=== PATIENT | male | born 1995 | race African-American/Black ===

== ENCOUNTER → 2017-08-25 | Outpatient (CLI) | payer OTHER ==
[~2017-08-25] MED LIST: AMLO5CAP2 PO; CHOL100010 PO
== END | disposition home or self-care (01) ==
LOC: C.LAB 03:12
DX: Z02.83 Encounter for blood-alcohol and blood-drug test (principal)

== ENCOUNTER 2020-08-29 18:47 | Observation (INO) ==
[2020-08-29] MEDS ORDERED: ONDANSETRON INJ 2 MG/ML 2 ML VIAL IV STA (20:06)
--- NOTE | 2020-08-29 20:06 | Emergency Department Note ---
Impression & Plan Malignant hypertension, Priapism ED Provider Note INFORMANT: Patient ED PROVIDER(S): Abhishek Desai MD CHIEF COMPLAINT: Illness PLAN: Disposition: Admitted Condition: Good Outpatient prescription management: none Referral: None MEDICAL DECISION MAKING: Patient presented to the emergency department complaining of illness. Initially was reported as severe abdominal pain and nausea. On my interview and history the patient noted having lower abdominal/groin pain and approximately 8 hours of a priapism episode. He has not had anything this significant before. He notes occasionally experiencing an erection for about 1 hour or so. Patient was noted to have significant hypertension. He seemed quite uncomfortable. He was treated with IV Dilaudid. He had a slight leukocytosis on CBC. Chemistry panel was unremarkable. I did consult with Dr. Rose of urology. The patient was evaluated in the ER. He treated his priapism and I did have to treat the patient's blood pressure. He was given labetalol and then hydralazine. He was given additional Dilaudid. The patient was doing better after the successful treatment of his priapism. He was being monitored as his blood pressure was still moderately elevated. The patient suddenly was unresponsive and appeared to have very rigid arms and legs. He bit his tongue. It looked like he experienced a seizure. I immediately attended to the patient. This occurred just minutes after my last reassessment of him. He had no complaints other than mild groin pain. He was placed on a nonrebreather. I did place a nasal airway. He maintained his oxygen saturations with this. He was minimally tachycardic and his blood pressure was around 150 systolic. He began to slowly respond to painful stimuli. He was still significantly altered. I did order a dose of IV Keppra. He had a CT scan ordered as well. Patient seemed to be in a postictal state for approximately 16 minutes and then started to come around rapidly. He was extremely confused. He was awake and yelling. He was trying to climb out of bed. Despite verbal de-escalation he was still very combative. Additional staff was summoned as well as security. The patient required full physical hold restraints as well as locked limb restraints as he was pulling out his IV, fighting with staff, and was not redirectable. He was given 2 mg of IM Ativan. He began to become more calm, directable and cooperative. An IV was reestablished. The patient denied any complaints other than some mild groin pain. No headache. He was following commands. He was continuously reassessed. He noted a history of seizures several times. He is not currently taking any medication for seizure. Patient was sent for CT imaging of his head. No acute intracranial finding was noted. He was observed. He did well without any additional seizure activity or focal findings. Given the malignant hypertension, his pain, and this seizure event further management in the hospital will be necessary. I did consult with Dr. Hernandez of internal medicine. She evaluated the patient in the ER for further management. Triage Nursing notes reviewed and agree them. Vital Signs: reviewed and remarkable for significant hypertension Differential diagnosis: Priapism, intra-abdominal process, but on hypertension, hypertensive emergency, infection, dehydration, metabolic abnormality, hypo/hyperglycemia, electrolyte disturbance, anemia, hypoxia, cardiac sources, intracerebral event, toxicologic, neurologic, as well as other pathologies. Diagnostics interpreted by me: ECLead ECG reveals sinus rhythm at [address] elevation or depression. Normal QRS and axis. Cardiac Monitoring: Cardiac monitoring ordered by me: The patient was placed on continuous cardiac monitoring and observed. It revealed a normal sinus rhythm at 90 beats per minute without ectopy or evidence of dysrhythmia. Imaging studies: Head CT: A noncontrast CT scan of the head was performed and was negative for tumor, fracture, intracranial hemorrhage, or other acute pathology. HPI: The patient is a 25 year old male who presents to the Emergency Room with complaints of priapism. This started 8 hrs ago and is persistent. The patient also notes the following associated symptoms, nausea, suprapubic abdominal pain. The patient has found no relieving factors. Current pain is rated as 10/10. Pt denies LOC, headache, fevers, chills, diaphoresis, visual changes, neck pain, chest pain, breathing difficulties, trauma, vomiting, back pain, melena, hematochezia, urinary symptoms, numbness, weakness, lymphadenopathy, rash, or other complaints. ROS: See above HPI for pertinent positives & negatives. A total of 10 systems reviewed and were otherwise negative. PAST MEDICAL HISTORY:See Below , HTN PAST SURGICAL HISTORY:See Below, FAMILY HISTORY:See Below SOCIAL HISTORY:See Below, +marijuana , +etoh HOME MEDICATIONS:See Below ALLERGIES:See Below VITALS:See Below PHYSICAL EXAMINATION: GENERAL: Awake, alert, uncomfortable-appearing, in no distress HENT: Normocephalic, atraumatic. Oropharynx unremarkable. EYES: Normal conjunctiva. Sclera non-icteric. NECK: Inspection normal. Non-tender. Supple. No nuchal rigidity. FROM. No masses. RESPIRATORY: Clear to auscultation. No wheezes. No rales. Normal respiratory effort. CARDIAC: Normal rate. Normal rhythm. No murmurs. No rubs. Extremities warm and well perfused. Pulses equal. No JVD. GI: Soft, non-distended. No tenderness to palpation. No rebound or guarding. No masses. RECTAL: Deferred. MUSCULOSKELETAL: Atraumatic. Chest examination reveals no tenderness. The back is symmetrical on inspection without obvious abnormality. There is no CVA tenderness to palpation. No joint edema. LOWER EXTREMITIES: Calves are equal size bilaterally and non-tender. No edema. No discoloration. NEURO: Normal sensorium. No sensory or motor deficits noted. SKIN: No rash or jaundice noted. CRITICAL CARE: I have personally spent greater than 30 minutes of critical care time in the direct management of this patient. This includes bedside care, interpretation of diagnostic studies, and testing, discussion with consultants, patient,and other required patient management activities. This 30 minutes is in excess of all separately billable procedures. Abhishek Desai MD Past Med/Surg History Medical History (Updated 08/29/20 @ 20:04 by Abhishek Desai MD) Alcohol dependency Hypertension Social History (Updated 07/28/19 @ 21:35 by Katie Pedraza MD) Smoking Status: Current every day smoker Hx Alcohol Use: Yes Hx Substance Use: No Current Living Situation: Alone and Other current occupational status: employed Feels Safe at Home: Yes Allergies Allergies Allergy/AdvReac Type Severity Reaction Status Date / Time No Known Allergies Allergy Unverified 08/29/20 20:12 Home Meds Home Medications Medication Instructions Recorded Confirmed No Known Home Medications 08/29/20 08/29/20 Results & Data (ED) Vital Signs Vital Signs - 24 hr 08/29/20 18:57 08/29/20 20:31 08/29/20 20:42 Temperature 36.6 C Temperature Source Temporal Artery Scan Pulse Rate 94 H 81 71 Pulse Rate from SpO2 Sensor Respiratory Rate 18 16 21 Respiratory Effort / Characteristics Non-Labored Respiratory Depth Normal Blood Pressure 222/134 H 198/127 H Blood Pressure Mean 163 150 Pulse Oximetry 98 Oxygen Delivery Method Room Air Sepsis Recent Fever Within 48 Hours No Sepsis New/Unexplained Change in Mental Status No Sepsis Action Taken by Nursing No Action Required 08/29/20 21:00 08/29/20 21:05 08/29/20 21:09 Temperature Temperature Source Pulse Rate 72 70 62 Pulse Rate from SpO2 Sensor Respiratory Rate 18 20 17 Respiratory Effort / Characteristics Respiratory Depth Blood Pressure 214/130 H 212/156 H Blood Pressure Mean 158 174 Pulse Oximetry Oxygen Delivery Method Sepsis Recent Fever Within 48 Hours Sepsis New/Unexplained Change in Mental Status Sepsis Action Taken by Nursing 08/29/20 21:10 08/29/20 21:11 08/29/20 21:13 Temperature Temperature Source Pulse Rate 53 L 67 58 L Pulse Rate from SpO2 Sensor Respiratory Rate 20 22 23 Respiratory Effort / Characteristics Respiratory Depth Blood Pressure 188/109 H 208/140 H Blood Pressure Mean 135 162 Pulse Oximetry Oxygen Delivery Method Sepsis Recent Fever Within 48 Hours Sepsis New/Unexplained Change in Mental Status Sepsis Action Taken by Nursing 08/29/20 21:15 08/29/20 21:18 08/29/20 21:20 Temperature Temperature Source Pulse Rate 60 62 71 Pulse Rate from SpO2 Sensor Respiratory Rate 25 H 15 23 Respiratory Effort / Characteristics Respiratory Depth Blood Pressure 183/111 H 177/112 H 198/114 H Blood Pressure Mean 135 133 142 Pulse Oximetry Oxygen Delivery Method Sepsis Recent Fever Within 48 Hours Sepsis New/Unexplained Change in Mental Status Sepsis Action Taken by Nursing 08/29/20 21:23 08/29/20 21:25 08/29/20 21:28 Temperature Temperature Source Pulse Rate 60 55 L 56 L Pulse Rate from SpO2 Sensor Respiratory Rate 17 20 20 Respiratory Effort / Characteristics Respiratory Depth Blood Pressure 198/120 H 219/119 H 201/128 H Blood Pressure Mean 146 152 152 Pulse Oximetry Oxygen Delivery Method Sepsis Recent Fever Within 48 Hours Sepsis New/Unexplained Change in Mental Status Sepsis Action Taken by Nursing 08/29/20 21:30 08/29/20 21:31 08/29/20 21:33 Temperature Temperature Source Pulse Rate 66 72 67 Pulse Rate from SpO2 Sensor Respiratory Rate 19 20 23 Respiratory Effort / Characteristics Respiratory Depth Blood Pressure 218/131 H 178/119 H Blood Pressure Mean 160 138 Pulse Oximetry Oxygen Delivery Method Sepsis Recent Fever Within 48 Hours Sepsis New/Unexplained Change in Mental Status Sepsis Action Taken by Nursing 08/29/20 21:34 08/29/20 21:35 08/29/20 21:38 Temperature Temperature Source Pulse Rate 68 81 78 Pulse Rate from SpO2 Sensor Respiratory Rate 17 19 17 Respiratory Effort / Characteristics Respiratory Depth Blood Pressure 179/143 H 166/108 H Blood Pressure Mean 155 127 Pulse Oximetry Oxygen Delivery Method Sepsis Recent Fever Within 48 Hours Sepsis New/Unexplained Change in Mental Status Sepsis Action Taken by Nursing 08/29/20 21:40 08/29/20 21:50 08/29/20 22:00 Temperature Temperature Source Pulse Rate 81 97 H Pulse Rate from SpO2 Sensor Respiratory Rate 21 22 Respiratory Effort / Characteristics Respiratory Depth Blood Pressure 192/105 H 173/123 H 144/93 H Blood Pressure Mean 134 139 110 Pulse Oximetry Oxygen Delivery Method Sepsis Recent Fever Within 48 Hours Sepsis New/Unexplained Change in Mental Status Sepsis Action Taken by Nursing 08/29/20 22:03 08/29/20 22:05 08/29/20 22:10 Temperature Temperature Source Pulse Rate 80 88 99 H Pulse Rate from SpO2 Sensor 79 90 99 H Respiratory Rate 24 19 28 H Respiratory Effort / Characteristics Respiratory Depth Blood Pressure 160/130 H 167/110 H Blood Pressure Mean 140 129 Pulse Oximetry 98 100 100 Oxygen Delivery Method Sepsis Recent Fever Within 48 Hours Sepsis New/Unexplained Change in Mental Status Sepsis Action Taken by Nursing 08/29/20 22:15 08/29/20 22:20 08/29/20 22:25 Temperature Temperature Source Pulse Rate 81 92 H 90 Pulse Rate from SpO2 Sensor 84 94 H Respiratory Rate 20 19 14 Respiratory Effort / Characteristics Respiratory Depth Blood Pressure 187/105 H 167/135 H 189/116 H Blood Pressure Mean 132 145 140 Pulse Oximetry 97 97 Oxygen Delivery Method Sepsis Recent Fever Within 48 Hours Sepsis New/Unexplained Change in Mental Status Sepsis Action Taken by Nursing 08/29/20 22:30 08/29/20 22:31 08/29/20 22:35 Temperature Temperature Source Pulse Rate 90 79 93 H Pulse Rate from SpO2 Sensor 91 H 79 Respiratory Rate 11 L 15 20 Respiratory Effort / Characteristics Respiratory Depth Blood Pressure 175/139 H 184/110 H Blood Pressure Mean 151 134 Pulse Oximetry 96 98 Oxygen Delivery Method Sepsis Recent Fever Within 48 Hours Sepsis New/Unexplained Change in Mental Status Sepsis Action Taken by Nursing 08/29/20 22:40 08/29/20 22:45 08/29/20 22:50 Temperature Temperature Source Pulse Rate 118 H 113 H 110 H Pulse Rate from SpO2 Sensor 117 H 113 H 110 H Respiratory Rate 27 H 19 16 Respiratory Effort / Characteristics Respiratory Depth Blood Pressure 201/141 H 210/111 H 161/93 H Blood Pressure Mean 161 144 115 Pulse Oximetry 99 98 98 Oxygen Delivery Method Sepsis Recent Fever Within 48 Hours Sepsis New/Unexplained Change in Mental Status Sepsis Action Taken by Nursing 08/29/20 22:53 08/29/20 22:55 08/29/20 23:00 Temperature Temperature Source Pulse Rate 108 H 105 H 104 H Pulse Rate from SpO2 Sensor 109 H 105 H 104 H Respiratory Rate 19 16 16 Respiratory Effort / Characteristics Respiratory Depth Blood Pressure 162/86 H 152/85 H 148/78 H Blood Pressure Mean 111 107 101 Pulse Oximetry 98 99 99 Oxygen Delivery Method Sepsis Recent Fever Within 48 Hours Sepsis New/Unexplained Change in Mental Status Sepsis Action Taken by Nursing 08/29/20 23:12 08/29/20 23:20 08/29/20 23:21 Temperature Temperature Source Pulse Rate 100 H 105 H 102 H Pulse Rate from SpO2 Sensor 105 H 101 H Respiratory Rate 16 15 Respiratory Effort / Characteristics Respiratory Depth Blood Pressure 198/95 H 167/96 H Blood Pressure Mean 129 119 Pulse Oximetry 99 97 Oxygen Delivery Method Sepsis Recent Fever Within 48 Hours Sepsis New/Unexplained Change in Mental Status Sepsis Action Taken by Nursing 08/29/20 23:30 08/29/20 23:53 Temperature Temperature Source Pulse Rate 101 H 87 Pulse Rate from SpO2 Sensor 104 H Respiratory Rate 17 15 Respiratory Effort / Characteristics Respiratory Depth Blood Pressure 150/85 H 154/92 H Blood Pressure Mean 106 112 Pulse Oximetry 96 Oxygen Delivery Method Sepsis Recent Fever Within 48 Hours Sepsis New/Unexplained Change in Mental Status Sepsis Action Taken by Nursing Laboratory Data Result diagrams: 08/29/20 20:16 08/29/20 20:16 Lab Results 08/29/20 08/29/20 08/29/20 Range/Units 20:16 20:16 21:00 WBC 11.42 H (4.8-10.8) K/uL RBC 4.55 L (4.7-6.1) M/uL Hgb 13.7 L (14.0-18.0) g/dL Hct 38.8 L (42-52) % MCV 85.3 (80-100) fL MCH 30.1 (25-34) pg MCHC 35.3 (32-36) g/dL RDW Std Deviation 45.6 (36.4-46.3) fL RDW Coeff of Leeanne 14.5 (11.5-14.5) % Plt Count 294 (130-400) K/uL MPV 9.4 (7.4-10.4) fL Immature Gran % (Auto) 0.3 % Neut % (Auto) 87.3 % Lymph % (Auto) 8.4 % Price % (Auto) 3.9 % Eos % (Auto) 0.1 % Baso % (Auto) 0.0 % Neut # (Auto) 9.98 H (1.4-6.5) K/uL Lymph # (Auto) 0.96 L (1.2-3.4) K/uL Price # (Auto) 0.44 (0.11-0.59) K/uL Eos # (Auto) 0.01 (0-0.5) K/uL Baso # (Auto) 0.00 (0-0.2) K/uL Immature Gran # (Auto) 0.03 H (0.00-0.02) K/uL Sodium 136 (136-145) mmol/L Potassium 3.5 (3.5-5.1) mmol/L Chloride 102 (98-107) mmol/L Carbon Dioxide 27 (21-32) mmol/L Anion Gap 8.0 (3-11) BUN 6 L (7-18) mg/dl Creatinine 0.78 (0.6-1.4) mg/dl Est Cr Clr Drug Dosing 125.5 ml/min Est GFR ( Amer) 145.4 Est GFR (Non-Af Amer) 125.5 BUN/Creatinine Ratio 8.0 L (10-20) Glucose 100 H (70-99) mg/dl POC Glucose (70-99) mg/dl Calcium 10.3 H (8.5-10.1) mg/dl Total Bilirubin 0.4 (0.2-1) mg/dl AST 16 (15-37) U/L ALT 18 (12-78) U/L Alkaline Phosphatase 107 (45-117) U/L Total Protein 7.7 (6.4-8.2) gm/dl Albumin 4.2 (3.4-5.0) gm/dl Globulin 3.5 (2.5-4.0) gm/dl Albumin/Globulin Ratio 1.2 (0.9-2) Lipase 84 (73-393) U/L Urine Color Yellow Urine Appearance Clear (Clear) Urine pH 8.0 H (4.5-7.5) Ur Specific [place] 1.006 (1.000-1.030) Urine Protein Negative (Negative) Urine Glucose (UA) Negative (Negative) Urine Ketones Negative (Negative) Urine Blood Negative (Negative) Urine Nitrite Negative (Negative) Urine Bilirubin Negative (Negative) Urine Urobilinogen Negative (Negative) Ur Leukocyte Esterase Negative (Negative) COVID-19 Eval Order SARS-CoV-2 (PCR) (Negative) Influenza Type A (PCR) (Neg) Influenza Type B (PCR) (Neg) RSV (RT-PCR) (Neg) 08/29/20 08/29/20 08/29/20 Range/Units 22:52 23:30 23:30 WBC (4.8-10.8) K/uL RBC (4.7-6.1) M/uL Hgb (14.0-18.0) g/dL Hct (42-52) % MCV (80-100) fL MCH (25-34) pg MCHC (32-36) g/dL RDW Std Deviation (36.4-46.3) fL RDW Coeff of Leeanne (11.5-14.5) % Plt Count (130-400) K/uL MPV (7.4-10.4) fL Immature Gran % (Auto) % Neut % (Auto) % Lymph % (Auto) % Price % (Auto) % Eos % (Auto) % Baso % (Auto) % Neut # (Auto) (1.4-6.5) K/uL Lymph # (Auto) (1.2-3.4) K/uL Price # (Auto) (0.11-0.59) K/uL Eos # (Auto) (0-0.5) K/uL Baso # (Auto) (0-0.2) K/uL Immature Gran # (Auto) (0.00-0.02) K/uL Sodium (136-145) mmol/L Potassium (3.5-5.1) mmol/L Chloride (98-107) mmol/L Carbon Dioxide (21-32) mmol/L Anion Gap (3-11) BUN (7-18) mg/dl Creatinine (0.6-1.4) mg/dl Est Cr Clr Drug Dosing ml/min Est GFR ( Amer) Est GFR (Non-Af Amer) BUN/Creatinine Ratio (10-20) Glucose (70-99) mg/dl POC Glucose 136 H (70-99) mg/dl Calcium (8.5-10.1) mg/dl Total Bilirubin (0.2-1) mg/dl AST (15-37) U/L ALT (12-78) U/L Alkaline Phosphatase (45-117) U/L Total Protein (6.4-8.2) gm/dl Albumin (3.4-5.0) gm/dl Globulin (2.5-4.0) gm/dl Albumin/Globulin Ratio (0.9-2) Lipase (73-393) U/L Urine Color Urine Appearance (Clear) Urine pH (4.5-7.5) Ur Specific [place] (1.000-1.030) Urine Protein (Negative) Urine Glucose (UA) (Negative) Urine Ketones (Negative) Urine Blood (Negative) Urine Nitrite (Negative) Urine Bilirubin (Negative) Urine Urobilinogen (Negative) Ur Leukocyte Esterase (Negative) COVID-19 Eval Order CovFluRsv at [facility] SARS-CoV-2 (PCR) NEGATIVE (Negative) Influenza Type A (PCR) Negative (Neg) Influenza Type B (PCR) Negative (Neg) RSV (RT-PCR) Negative (Neg) Administered Medications Hydromorphone HCl (Hydromorphone Inj 1 Mg/Ml Syringe) 1 mg IV Q15M PRN PRN Reason: Pain Stop: 09/12/20 20:05 Last Admin: 08/29/20 22:03 Dose: 1 mg Documented by: [id number] Admin: 08/29/20 21:28 Dose: 1 mg Documented by: [id number] Admin: 08/29/20 20:53 Dose: 1 mg Documented by: [id number] Phenylephrine HCl 4 mg/ (Syringe) 20 mls @ 0.033 mls/min ITC ONE ONE Stop: 08/30/20 07:06 Last Admin: 08/29/20 21:22 Dose: 0.033 mls/min Documented by: [id number] Discontinued Medications Hydralazine HCl (Hydralazine Hcl 20 Mg/Ml Vial) 10 mg IV NOW STA Stop: 08/29/20 21:22 Last Admin: 08/29/20 21:26 Dose: 10 mg Documented by: [id number] Sodium Chloride (Nss 1000ml) 1,000 mls @ 999 mls/hr IV .Q1H1M ONE Stop: 08/29/20 21:07 Last Infusion: 08/29/20 23:01 Dose: 0 mls/hr Documented by: [id number] Admin: 08/29/20 20:58 Dose: 999 mls/hr Documented by: [id number] Levetiracetam 1,000 mg/ Sodium (Chloride) 110 mls @ 440 mls/hr IV NOW STA Stop: 08/29/20 23:05 Last Infusion: 08/29/20 23:58 Dose: 0 mls/hr Documented by: [id number] Admin: 08/29/20 23:21 Dose: 440 mls/hr Documented by: [id number] Labetalol HCl (Labetalol Hcl Iv 5 Mg/Ml 20ml) 10 mg IV NOW STA Stop: 08/29/20 21:00 Last Admin: 08/29/20 21:03 Dose: 10 mg Documented by: [id number] Cosigned by: [id number] Lidocaine HCl (Lidocaine Hcl 1% 20 Ml Vial) Confirm Administered Dose 20 ml .ROUTE .STK-MED ONE Stop: 08/29/20 21:03 Last Admin: 08/29/20 21:22 Dose: 20 ml Documented by: [id number] Lorazepam (Lorazepam 2 Mg/Ml Vial (Im Use)) Confirm Administered Dose 2 mg .ROUTE .STK-MED ONE Stop: 08/29/20 23:05 Last Admin: 08/29/20 23:22 Dose: 2 mg Documented by: [id number] Ondansetron HCl (Ondansetron Inj 2 Mg/Ml 2 Ml Vial) 4 mg IV NOW STA Stop: 08/29/20 20:07 Last Admin: 08/29/20 20:53 Dose: 4 mg Documented by: [id number] Discharge Plan Visit Data Chief Complaint: Illness Stated Complaint: LOSS OF BLOOD FLOW, DIZZY ED Provider: Abhishek Desai Discharge Problem: Malignant hypertension, Priapism Forms Stand Alone Forms: My [facility] Prescriptions Prescriptions: No Action No Known Home Medications RF: 0
[2020-08-29] MEDS ORDERED: SODIUM CHLORIDE 0.9% 1000ML 1,000 ML IV ONE (20:07)
[2020-08-29 20:27] LABS: Eosinophils # (auto) 0.01 K/uL (0-0.5); Eosinophils % (auto) 0.1 %; Hematocrit (blood only) 38.8 % (42-52); Hemoglobin 13.7 g/dL (14.0-18.0); Immature Granulocytes # (auto) 0.03 K/uL (0.00-0.02); Immature Granulocytes % (auto) 0.3 %; Lymphocytes # (auto) 0.96 K/uL (1.2-3.4); Lymphocytes % (auto) 8.4 %; Mean Corpuscular Hemoglobin 30.1 pg (25-34); Mean Corpuscular Hgb Conc 35.3 g/dL (32-36); Mean Corpuscular Volume 85.3 fL (80-100); Mean Platelet Volume 9.4 fL (7.4-10.4); Monocytes # (auto) 0.44 K/uL (0.11-0.59); Monocytes % (auto) 3.9 %; Neutrophils # (auto) 9.98 K/uL (1.4-6.5); Neutrophils % (auto) 87.3 %; Platelet Count 294 K/uL (130-400); RDW Coefficient of Variation 14.5 % (11.5-14.5); RDW Standard Deviation 45.6 fL (36.4-46.3); Red Blood Count 4.55 M/uL (4.7-6.1); White Blood Count 11.42 K/uL (4.8-10.8)
[2020-08-29 20:46] LABS: Albumin Level 4.2 gm/dl (3.4-5.0); Calcium 10.3 mg/dl (8.5-10.1); Creatinine Clr Calc Pharmacy 125.5 ml/min; Est GFR (African American) 145.4; Est GFR (Non-African American) 125.5; Potassium 3.5 mmol/L (3.5-5.1)
[2020-08-29 20:49] LABS: Albumin Globulin Ratio 1.2 (0.9-2); Bilirubin,Total 0.4 mg/dl (0.2-1); Globulin 3.5 gm/dl (2.5-4.0); Total Protein 7.7 gm/dl (6.4-8.2)
[2020-08-29] MEDS: HYDROmorphone INJ 1 MG/ML SYRINGE IV PRN ×3 (20:53→22:03)
[2020-08-29] MEDS ORDERED: LABETALOL HCL IV 5 MG/ML 20ML IV STA (20:59)
[2020-08-29] MEDS ORDERED: PHENYLEPHRINE HCL ITC ONE ×2 (21:00)
[2020-08-29] MEDS ORDERED: LIDOCAINE HCL 1% 20 ML VIAL ONE (21:02)
[2020-08-29] MEDS ORDERED: hydrALAZINE HCL 20 MG/ML VIAL IV STA (21:21)
[2020-08-29 22:31] LABS: Appearance Urine Clear (Clear); Bilirubin Urine Negative (Negative); Blood Urine Negative (Negative); Color Urine Yellow; Glucose Urine UA Negative (Negative); Ketones Urine Negative (Negative); Leukocyte Esterase Urine Negative (Negative); Nitrite Urine Negative (Negative); Protein Urine Negative (Negative); Specific Gravity Urine 1.006 (1.000-1.030); Urobilinogen Urine Negative (Negative)
[2020-08-29] MEDS ORDERED: levETIRAcetam 1,000 MG in 0.9 % SODIUM CHLORIDE 100 ML IV STA (22:51)
[2020-08-29] MEDS ORDERED: LORazepam 2 MG/ML VIAL (IM USE) ONE (23:04)
[2020-08-30 00:35] LABS: Influenza A virus by PCR Negative (Neg); Influenza B virus by PCR Negative (Neg); RSV by PCR Negative (Neg); SARS CoV2 RNA(COVID-19) InHosp NEGATIVE (Negative)
--- NOTE | 2020-08-30 01:13 | History & Physical Report ---
Date of Service August 30, 2020 Assessment & Plan (1) Priapism: 25yo male presenting with 8 hours of priapism. Patient states he has had erections in the past lasting over one hour, but no history of prolonged erection/priapism in the past. He denies trauma. Treated by Urology with Phenylephrine -Monitor Present on Admission?: Yes (2) Hypertension: Elevated blood pressure, >200mmHg in ER. Improved now with administration of Labetalol and Hydralazine IV. Patient states he has had hypertension since childhood. He was being followed by PCP in the past and was on medications for this previously, however, currently does not take any medications. Collateral information obtained from patient's mother who stated he was first diagnosed with high blood pressure at age 13, possibly after a streptococcal infection/strep throat. He was on medication in the past but does not routinely see a physician. -Labetalol and Hydralazine IV PRN -Chlorthalidone 25mg po daily to start tomorrow -Consider secondary hypertension workup -Patient will need to establish care with a PCP and followup Present on Admission?: Yes (3) Seizure: Mother states that patient has had several seizures over the past few months. She is uncertain why patient is having seizure. He does have a history of substance abuse and EtOH use but denies using anything today. Mother also states that patient has become combative in the past following seizures. He was given Keppra x 1 gm in ER Electrolytes largely normal -Maintain seizure precautions -Check EEG -Neurology consultation appreciated -Checking UTox and EtOH level -Ativan PRN Present on Admission?: Yes (4) Alcohol dependency: Uncertain how much patient drinks or when his last drink was. -Administer banana bag -Thiamine and folic acid PO daily -Maintain seizure precautions -Ativan PRN -Monitor for evidence of EtOH withdrawal F/E/N - IVF given in ER, monitor electrolytes and replete as needed, Check Ical, regular diet when MS improves Ppx - Low risk for DVT Code- Full Dispo - Admit to PCU POC - Yelitza Gloria - Mother - [phone] History of Present Illness Chief Complaint: priapism Primary Care Provider: NO PCP Rigo Vargas is a 25yo male with history of HTN presenting to [facility] ER with priapism - initially complaining of lower abdominal pain and groin pain. Found to have priapism - appx 8 hour duration. He was evaluated by Urology whilst in the ER and was treated for his priapism with phenylephrine and pain control. Patient then proceeded to have a witnessed tonic-clonic seizure which was treated with Ativan and Keppra. patient was combative upon awakening and was briefly placed in restraints. Blood pressure was managed with several IV agents. Patient somnolent during my encounter. Wakes to verbal and tactile stimuli and answers some questions before falling back asleep. No additional complaints ER Course: Ativan 2mg, Keppra 1gm, Dilaudid 1mg, Hydralazine 10mg, Dilaudid 1mg x 3, Lidocaine, Phenylephrine, Labetalol, NSS, Zofran Allergies Allergy/AdvReac Type Severity Reaction Status Date / Time No Known Allergies Allergy Unverified 08/29/20 20:12 Home Medications Medication Instructions Recorded Confirmed Type No Known Home Medications 08/29/20 08/29/20 History Past Med/Surg History Medical History (Updated 08/30/20 @ 01:39 by Radha Hernandez DO) Alcohol dependency Hypertension Surgical History (Updated 08/30/20 @ 01:34 by Radha Hernandez DO) No significant past surgical history Family History (Updated 08/30/20 @ 01:35 by Radha Hernandez DO) Other No significant family history Social History (Updated 07/28/19 @ 21:35 by Katie Pedraza MD) Smoking Status: Current every day smoker Hx Alcohol Use: Yes Hx Substance Use: No Current Living Situation: Alone and Other current occupational status: employed Feels Safe at Home: Yes Review of Systems Review of Systems: All systems reviewed & are unremarkable except as noted in HPI & below Physical Exam Physical Exam: General: patient somnolent, arousable, answers some questions and follows commands Skin: warm, dry, intact, no rashes or lesions HEENT: NC/AT, PERRL, EOMI, anicteric sclera, conjunctiva without injection, external ear normal to inspection and nontender, nares patent, moist mucus membranes, dentition intact, no oropharyngeal lesions, neck supple, trachea midline, no LAD, no thyromegaly, no JVD Heart: +S1/S2, regular, no m/r/g Lungs: equal air entry bilaterally, no rales/rhonchi/wheezes Abd: +BS, soft, NT/ND, no masses/organomegaly/ascites Ext: warm, 2+ pulses in UE/LE bilaterally, no clubbing/cyanosis or edema Neuro: nonfocal, patient AA&O x 4, speech intact, no facial droop, moving all extremities on command with equal strength 5/5 Results & Data Results & Data ([facility]) Vital Signs (Past 12 Hours) Vital Signs Temp Pulse Resp BP Pulse Ox 08/29/20 23:53 87 15 154/92 H 08/29/20 23:30 101 H 17 150/85 H 96 08/29/20 23:21 102 H 15 167/96 H 97 08/29/20 23:20 105 H 16 198/95 H 99 08/29/20 23:12 100 H 08/29/20 23:00 104 H 16 148/78 H 99 08/29/20 22:55 105 H 16 152/85 H 99 08/29/20 22:53 108 H 19 162/86 H 98 08/29/20 22:50 110 H 16 161/93 H 98 08/29/20 22:45 113 H 19 210/111 H 98 08/29/20 22:40 118 H 27 H 201/141 H 99 08/29/20 22:35 93 H 20 184/110 H 08/29/20 22:31 79 15 98 08/29/20 22:30 90 11 L 175/139 H 96 08/29/20 22:25 90 14 189/116 H 08/29/20 22:20 92 H 19 167/135 H 97 08/29/20 22:15 81 20 187/105 H 97 08/29/20 22:10 99 H 28 H 167/110 H 100 08/29/20 22:05 88 19 160/130 H 100 08/29/20 22:03 80 24 98 08/29/20 22:00 144/93 H 08/29/20 21:50 97 H 22 173/123 H 08/29/20 21:40 81 21 192/105 H 08/29/20 21:38 78 17 166/108 H 08/29/20 21:35 81 19 179/143 H 08/29/20 21:34 68 17 08/29/20 21:33 67 23 178/119 H 08/29/20 21:31 72 20 08/29/20 21:30 66 19 218/131 H 08/29/20 21:28 56 L 20 201/128 H 08/29/20 21:25 55 L 20 219/119 H 08/29/20 21:23 60 17 198/120 H 08/29/20 21:20 71 23 198/114 H 08/29/20 21:18 62 15 177/112 H 08/29/20 21:15 60 25 H 183/111 H 08/29/20 21:13 58 L 23 208/140 H 08/29/20 21:11 67 22 08/29/20 21:10 53 L 20 188/109 H 08/29/20 21:09 62 17 212/156 H 08/29/20 21:05 70 20 214/130 H 08/29/20 21:00 72 18 08/29/20 20:42 71 21 08/29/20 20:31 81 16 198/127 H 08/29/20 18:57 36.6 C 94 H 18 222/134 H 98 Laboratory Results Lab Results 08/29/20 08/29/20 08/29/20 Range/Units 20:16 20:16 21:00 WBC 11.42 H (4.8-10.8) K/uL RBC 4.55 L (4.7-6.1) M/uL Hgb 13.7 L (14.0-18.0) g/dL Hct 38.8 L (42-52) % MCV 85.3 (80-100) fL MCH 30.1 (25-34) pg MCHC 35.3 (32-36) g/dL RDW Std Deviation 45.6 (36.4-46.3) fL RDW Coeff of Leeanne 14.5 (11.5-14.5) % Plt Count 294 (130-400) K/uL MPV 9.4 (7.4-10.4) fL Immature Gran % (Auto) 0.3 % Neut % (Auto) 87.3 % Lymph % (Auto) 8.4 % [place] % (Auto) 3.9 % Eos % (Auto) 0.1 % Baso % (Auto) 0.0 % Neut # (Auto) 9.98 H (1.4-6.5) K/uL Lymph # (Auto) 0.96 L (1.2-3.4) K/uL [place] # (Auto) 0.44 (0.11-0.59) K/uL Eos # (Auto) 0.01 (0-0.5) K/uL Baso # (Auto) 0.00 (0-0.2) K/uL Immature Gran # (Auto) 0.03 H (0.00-0.02) K/uL Sodium 136 (136-145) mmol/L Potassium 3.5 (3.5-5.1) mmol/L Chloride 102 (98-107) mmol/L Carbon Dioxide 27 (21-32) mmol/L Anion Gap 8.0 (3-11) BUN 6 L (7-18) mg/dl Creatinine 0.78 (0.6-1.4) mg/dl Est Cr Clr Drug Dosing 125.5 ml/min Est GFR ( Amer) 145.4 Est GFR (Non-Af Amer) 125.5 BUN/Creatinine Ratio 8.0 L (10-20) Glucose 100 H (70-99) mg/dl POC Glucose (70-99) mg/dl Calcium 10.3 H (8.5-10.1) mg/dl Total Bilirubin 0.4 (0.2-1) mg/dl AST 16 (15-37) U/L ALT 18 (12-78) U/L Alkaline Phosphatase 107 (45-117) U/L Total Protein 7.7 (6.4-8.2) gm/dl Albumin 4.2 (3.4-5.0) gm/dl Globulin 3.5 (2.5-4.0) gm/dl Albumin/Globulin Ratio 1.2 (0.9-2) Lipase 84 (73-393) U/L Urine Color Yellow Urine Appearance Clear (Clear) Urine pH 8.0 H (4.5-7.5) Ur Specific [place] 1.006 (1.000-1.030) Urine Protein Negative (Negative) Urine Glucose (UA) Negative (Negative) Urine Ketones Negative (Negative) Urine Blood Negative (Negative) Urine Nitrite Negative (Negative) Urine Bilirubin Negative (Negative) Urine Urobilinogen Negative (Negative) Ur Leukocyte Esterase Negative (Negative) COVID-19 Eval Order SARS-CoV-2 (PCR) (Negative) Influenza Type A (PCR) (Neg) Influenza Type B (PCR) (Neg) RSV (RT-PCR) (Neg) 08/29/20 08/29/20 08/29/20 Range/Units 22:52 23:30 23:30 WBC (4.8-10.8) K/uL RBC (4.7-6.1) M/uL Hgb (14.0-18.0) g/dL Hct (42-52) % MCV (80-100) fL MCH (25-34) pg MCHC (32-36) g/dL RDW Std Deviation (36.4-46.3) fL RDW Coeff of Leeanne (11.5-14.5) % Plt Count (130-400) K/uL MPV (7.4-10.4) fL Immature Gran % (Auto) % Neut % (Auto) % Lymph % (Auto) % [place] % (Auto) % Eos % (Auto) % Baso % (Auto) % Neut # (Auto) (1.4-6.5) K/uL Lymph # (Auto) (1.2-3.4) K/uL [place] # (Auto) (0.11-0.59) K/uL Eos # (Auto) (0-0.5) K/uL Baso # (Auto) (0-0.2) K/uL Immature Gran # (Auto) (0.00-0.02) K/uL Sodium (136-145) mmol/L Potassium (3.5-5.1) mmol/L Chloride (98-107) mmol/L Carbon Dioxide (21-32) mmol/L Anion Gap (3-11) BUN (7-18) mg/dl Creatinine (0.6-1.4) mg/dl Est Cr Clr Drug Dosing ml/min Est GFR ( Amer) Est GFR (Non-Af Amer) BUN/Creatinine Ratio (10-20) Glucose (70-99) mg/dl POC Glucose 136 H (70-99) mg/dl Calcium (8.5-10.1) mg/dl Total Bilirubin (0.2-1) mg/dl AST (15-37) U/L ALT (12-78) U/L Alkaline Phosphatase (45-117) U/L Total Protein (6.4-8.2) gm/dl Albumin (3.4-5.0) gm/dl Globulin (2.5-4.0) gm/dl Albumin/Globulin Ratio (0.9-2) Lipase (73-393) U/L Urine Color Urine Appearance (Clear) Urine pH (4.5-7.5) Ur Specific [place] (1.000-1.030) Urine Protein (Negative) Urine Glucose (UA) (Negative) Urine Ketones (Negative) Urine Blood (Negative) Urine Nitrite (Negative) Urine Bilirubin (Negative) Urine Urobilinogen (Negative) Ur Leukocyte Esterase (Negative) COVID-19 Eval Order CovFluRsv at [facility] SARS-CoV-2 (PCR) NEGATIVE (Negative) Influenza Type A (PCR) Negative (Neg) Influenza Type B (PCR) Negative (Neg) RSV (RT-PCR) Negative (Neg) Diagnostic Findings CT head - n oacute intracranial findings ECG Additional Comments: EKG with SR at 73, normal axis, PACs PG Care Time/CCT Total # of Minutes Spent Total Time Spent with Patient: Total time spent is greater than 50% in coordination of care (as documented) at patient's floor/unit and/or counseling patient: Coding Level of Care Code 02022 Initial Inpt Care Lvl 3 Diagnoses Priapism N48.30 Hypertension I10 Hypertension type: essential hypertension Seizure R56.9 Alcohol dependency F10.288 Substance use status: other alcohol-induced disorder (1) Hypertension Hypertension type: essential hypertension Qualified Code(s): I10 - Essential (primary) hypertension (2) Alcohol dependency Substance use status: other alcohol-induced disorder Qualified Code(s): F10.288 - Alcohol dependence with other alcohol-induced disorder
[2020-08-30] MEDS ORDERED: LABETALOL HCL IV 5 MG/ML 20ML IV PRN (02:27)
[2020-08-30] MEDS ORDERED: LORazepam 1 MG/2 ML VIAL IV PRN (02:27)
[2020-08-30] MEDS ORDERED: hydrALAZINE HCL 20 MG/ML VIAL IV PRN (02:27)
[2020-08-30 03:22] LABS: Magnesium 2.5 mg/dl (1.8-2.4); Phosphorus 3.3 mg/dl (2.5-4.9)
[2020-08-30 03:23] LABS: Prothrombin Time 10.1 Seconds (9.0-12.0)
[2020-08-30] MEDS ORDERED: MULTI-VITAMIN INFUSION 10 ML, THIAMINE HCL 100 MG, FOLIC ACID 1 MG in SODIUM CHLORIDE 0... IV ONE (03:30)
[2020-08-30] MEDS ORDERED: HYDROmorphone INJ 0.5 MG/0.5 ML SYR IV STA ×3 (03:37→19:45)
[2020-08-30] MEDS: HYDROmorphone INJ 0.5 MG/0.5 ML SYR ONE ×2 (03:54→04:01)
[2020-08-30 03:55] LABS: Reticulocytes # 0.03 10^6/uL (0.02-0.10)
[2020-08-30 03:56] LABS: Reticulocyte % 0.6 % (0.5-2.0)
[2020-08-30 04:09] LABS: Amphetamines+Metham, Urine Neg (Neg); Barbiturates, Urine Neg (Neg); Benzodiazepine, Urine Neg (Neg); Cocaine, Urine Neg (Neg); MDMA (Ecstacy), Urine Neg (Neg); Methadone, Urine Neg (Neg); Opiate, Urine Pos (Neg); Phencyclidine, Urine Neg (Neg)
--- NOTE | 2020-08-30 06:56 | CT Scan Report ---
CT OF THE HEAD WITHOUT CONTRAST CLINICAL HISTORY: Seizure. COMPARISON STUDY: No previous studies for comparison. CT DOSE: 537.48 mGy.cm TECHNIQUE: Helical axial images of the head were obtained without IV contrast. Automated exposure con trol was utilized for the study. A dose lowering technique was utilized adhering to the principles o f ALARA. FINDINGS: No acute intracranial hemorrhage, midline shift or mass effect is present. The ventricular system is unremarkable. The basal cisterns are patent. No extra-axial collections are present. There are no findings to suggest acute dural sinus thrombosis or acute territorial infarct. No significant calvarial abnormalities are present. Visualized portions of the sinuses and mastoid air cells are jemima ar. IMPRESSION: No acute intracranial findings. ACT 112: Negative or not required by law. Electronically signed by: Alberto Brown M.D. 08/30/2020 6:55 AM
--- NOTE | 2020-08-30 07:31 | Consultation Report ---
DATE OF CONSULTATION: 08/29/2020 ER CONSULT REASON FOR THE CONSULT: Priapism. HISTORY OF PRESENTATION: The patient is a 25-year-old male with no previous history of priapism who this morning at 11:00, he woke up with an erection, tried to get back to sleep for an hour, but it never went away. It did not cause him any discomfort. He took a warm shower hoping that this would help, but it did not and around 3-4 o'clock, it began to be painful. Finally, he came to the Emergency Room. The patient denies any trauma to his penis. He did fall about a month ago and injured his ankle, but not his torso or his pelvis area. He does not have a history of any sickle cell in his family. He has never been told he had sickle cell. He does have a history of hypertension. He also has a history of drug and alcohol use and has had several overdoses with drug and alcohol use in the past couple years and as recently as several months ago. The patient also smokes. He was diagnosed a year ago with pancreatitis and is to follow up in [place] for this. The patient denies taking any medications. Denies having any allergies and again he previously took blood pressure medicine, but is not currently on it. PHYSICAL EXAMINATION: GENERAL: The patient is a thin, well-developed black male in moderate distress. HEENT: Unremarkable. Blood pressure was 200/140 and it was very high and the Emergency Room physician has managed this with hydralazine and other antihypertensives during the course of his stay as well as with Dilaudid. EXTREMITIES: Unremarkable. SKIN: Did have multiple tattoos. ABDOMEN: Benign. GENITALIA: He did have a clear erection with normal circumcised male phallus. Testes were normal without mass. Discussed the options with the patient, told him that I was going to withdraw some blood from the penis after anesthetizing him with 1% lidocaine without epinephrine and then irrigate it with some normal saline and I did this with some moderate reduction in the rigidity, but still remained rigid. Ordered some phenylephrine from the pharmacy per protocol, was 200 mcg/mL and injected 1 mL 3 times over waiting 10 minutes between each injection while irrigating in between. Finally, the penis totally detumesced. The patient still had mild discomfort but mainly from where the ligaments joined him to his torso. Otherwise, his pain was well controlled. I told him not to do any stimulation of his penis at all for several days. I told him that if he got this again he should come back after 3-4 hours rather than waiting as long as he did. Hopefully, the patient will not have this again. I also instructed him to follow up with the family doctor regarding his blood pressure and advised him against using alcohol given his pancreatitis and smoking given his high blood pressure. The patient will be managed by the Emergency Room physician for several hours monitoring his blood pressure and to make sure that the erection did not return prior to his release.
--- NOTE | 2020-08-30 08:38 | Electroencephalogram ---
EEG Procedure Note Date of Service August 30, 2020 Start / End Times Start Time: 5:17 AM End Time: 5:37 AM Referring Physician Radha Hernandez History Seizure Home Medication List Medication Instructions Recorded Confirmed Type No Known Home Medications 08/29/20 08/29/20 History Inpatient Medication List Discontinued Medications Hydralazine HCl (Hydralazine Hcl 20 Mg/Ml Vial) 10 mg IV NOW STA Stop: 08/29/20 21:22 Last Admin: 08/29/20 21:26 Dose: 10 mg Documented by: [id number] Hydromorphone HCl (Hydromorphone Inj 1 Mg/Ml Syringe) 1 mg IV Q15M PRN PRN Reason: Pain Stop: 09/12/20 20:05 Last Admin: 08/29/20 22:03 Dose: 1 mg Documented by: [id number] Admin: 08/29/20 21:28 Dose: 1 mg Documented by: [id number] Admin: 08/29/20 20:53 Dose: 1 mg Documented by: [id number] Hydromorphone HCl (Hydromorphone Inj 0.5 Mg/0.5 Ml Syr) 0.5 mg IV NOW STA Stop: 08/30/20 03:38 Last Admin: 08/30/20 03:47 Dose: 0.5 mg Documented by: [id number] Hydromorphone HCl (Hydromorphone Inj 0.5 Mg/0.5 Ml Syr) Confirm Administered Dose 0.5 mg .ROUTE .STK-MED ONE Stop: 08/30/20 03:47 Last Admin: 08/30/20 04:01 Dose: Not Given Documented by: [id number] Hydromorphone HCl (Hydromorphone Inj 0.5 Mg/0.5 Ml Syr) 0.25 mg IV NOW STA Stop: 08/30/20 05:24 Last Admin: 08/30/20 05:40 Dose: 0.25 mg Documented by: [id number] Sodium Chloride (Nss 1000ml) 1,000 mls @ 999 mls/hr IV .Q1H1M ONE Stop: 08/29/20 21:07 Last Infusion: 08/29/20 23:01 Dose: 0 mls/hr Documented by: [id number] Admin: 08/29/20 20:58 Dose: 999 mls/hr Documented by: [id number] Phenylephrine HCl 4 mg/ (Syringe) 20 mls @ 0.033 mls/min ITC ONE ONE Stop: 08/30/20 07:06 Last Admin: 08/29/20 21:22 Dose: 0.033 mls/min Documented by: [id number] Levetiracetam 1,000 mg/ Sodium (Chloride) 110 mls @ 440 mls/hr IV NOW STA Stop: 08/29/20 23:05 Last Infusion: 08/29/20 23:58 Dose: 0 mls/hr Documented by: [id number] Admin: 08/29/20 23:21 Dose: 440 mls/hr Documented by: [id number] Multivitamins 10 ml/ Thiamine HCl 100 mg/ Folic Acid 1 mg/Sodium Chloride 1,011.2 mls @ 500 mls/hr IV .Q2H2M ONE Stop: 08/30/20 05:31 Last Infusion: 08/30/20 05:18 Dose: 0 mls/hr Documented by: [id number] Admin: 08/30/20 03:16 Dose: 500 mls/hr Documented by: [id number] Labetalol HCl (Labetalol Hcl Iv 5 Mg/Ml 20ml) 10 mg IV NOW STA Stop: 08/29/20 21:00 Last Admin: 08/29/20 21:03 Dose: 10 mg Documented by: [id number] Cosigned by: [id number] Lidocaine HCl (Lidocaine Hcl 1% 20 Ml Vial) Confirm Administered Dose 20 ml .ROUTE .STK-MED ONE Stop: 08/29/20 21:03 Last Admin: 08/29/20 21:22 Dose: 20 ml Documented by: [id number] Lorazepam (Lorazepam 2 Mg/Ml Vial (Im Use)) Confirm Administered Dose 2 mg .ROUTE .STK-MED ONE Stop: 08/29/20 23:05 Last Admin: 08/29/20 23:22 Dose: 2 mg Documented by: [id number] Ondansetron HCl (Ondansetron Inj 2 Mg/Ml 2 Ml Vial) 4 mg IV NOW STA Stop: 08/29/20 20:07 Last Admin: 08/29/20 20:53 Dose: 4 mg Documented by: [id number] Description This is a 21 electrode EEG with a single channel dedicated to limited EKG. The electrodes were placed in accordance with the International 10-20 system. There is a posterior dominant rhythm of 10 Hz which is symmetrically distributed and attenuates with eye opening. There is a normal anterior to posterior organization. Photic stimulation is unremarkable. Hyperventilation was not performed. There is a symmetric frontal beta rhythm. There is admixed generalized theta activity in the latter part of the study. There are a few vertex waves. There is no lateralized or focal slowing. No epileptiform abnormalities. Interpretation Normal-appearing awake/sleepy EEG. A normal EEG does not completely exclude a diagnosis of epilepsy. Further clinical correlation may be needed. [id number] Procedure Codes Indication for Procedure (1) Seizure: Neurology Neurology: [id number] EEG include record awake & sleepy
[2020-08-30] MEDS ORDERED: THIAMINE HCL 100 MG TAB PO SCH (09:00)
[2020-08-30] MEDS ORDERED: CHLORTHALIDONE 25 MG TAB PO SCH (09:00)
[2020-08-30] MEDS ORDERED: FOLIC ACID 1 MG TAB PO SCH (09:00)
[2020-08-30] MEDS ORDERED: ONDANSETRON INJ 2 MG/ML 2 ML VIAL IV PRN (09:06)
[2020-08-30 09:10] LABS: Eosinophils # (auto) 0.04 K/uL (0-0.5); Eosinophils % (auto) 0.4 %; Hematocrit (blood only) 37.2 % (42-52); Immature Granulocytes # (auto) 0.02 K/uL (0.00-0.02); Immature Granulocytes % (auto) 0.2 %; Lymphocytes # (auto) 1.18 K/uL (1.2-3.4); Lymphocytes % (auto) 12.5 %; Mean Corpuscular Hemoglobin 29.7 pg (25-34); Mean Corpuscular Hgb Conc 34.9 g/dL (32-36); Mean Corpuscular Volume 85.1 fL (80-100); Mean Platelet Volume 8.9 fL (7.4-10.4); Monocytes # (auto) 0.74 K/uL (0.11-0.59); Monocytes % (auto) 7.8 %; Neutrophils # (auto) 7.46 K/uL (1.4-6.5); Neutrophils % (auto) 79.1 %; Platelet Count 277 K/uL (130-400); RDW Coefficient of Variation 14.7 % (11.5-14.5); RDW Standard Deviation 46.3 fL (36.4-46.3); Red Blood Count 4.37 M/uL (4.7-6.1); White Blood Count 9.44 K/uL (4.8-10.8)
--- NOTE | 2020-08-30 09:42 | Medical Student Progress Note ---
Date of Service August 30, 2020 Assessment & Plan (1) Seizure: Pt is 25M with seizure, HTN, and priapism with high suspicion that symptoms are related to his long history of substance and ETOH use since he was a teen. Seizure - Episode in ED with tongue biting, AMS, and postictal state. Has had some episodes in past mostly associated with ecstasy use, but has not used it recently. Suspect due to ETOH withdrawal and other substance use. - CT head showing no intracranial finding - EEG unremarkable - Neurology consultation appreciated. MRI brain ordered. Results pending. - Ativan PRN Substance and ETOH use -Thiamine and folic acid PO daily -Utox positive for opiates and THC. ETHOH <3mg. Full Utox pending. -Monitor for evidence of EtOH withdrawal -AWSS protocol in place, Ativan PRN Hypertension - Chronic and has had since 13yo. He was was taking HTN meds (lisinopril, HCTZ, and amlodipine) in past, but hasn't taken any for 1.5yrs. Suspect that HTN is 2/2 multiple substance abuse although cannot r/o renal vascular pathology without further w/u. - Initial BP in ED 222/134 and currently 136/68. - Started on Chlorthalidone 25mg po daily for now, reassess tomorrow for need to continue chronically - Consider secondary hypertension workup by getting renal U/S - Discussed with patient about establishing PCP care Priapism - Resolved, but still having soreness. - start Hydromorphone 0.5mg IV Q4H PRN for pain, and ondansetron 4mg IV Q4H PRN for N/V FEN/GI - Full diet Ppx - Low risk for DVT, ppx not indicated Code- Full Dispo - Admit to PCU POC - Yelitza Gloria - Mother - [phone] (2) Malignant hypertension: (3) Priapism: (4) Hypertension: Hypertension type: essential hypertension Qualified Code(s): I10 - Essential (primary) hypertension (5) Alcohol dependency: Substance use status: other alcohol-induced disorder Qualified Code(s): F10.288 - Alcohol dependence with other alcohol-induced disorder (6) Polysubstance overdose: Admission and Anticipated Discharge Date Admission Date: August 30, 2020 Subjective He is feeling nauseous and has vomited a couple of times. He denies any heartburn. Didn't touch breakfast, but does have appetite. 8/10 penile pain that feels sore worse at base of shaft. He denies FRANCIS, lightheadedness, chest pain, or palpitations. Currently homeless. He shared that he has using drugs around time that he was diagnosed with HTN in early teens (14-15yo). Amount of ETOH use dependent on setting. If at bar he would drink about 3-4 shots with 2 beers and if drinking alone he can drink up to a pint of ETOH. Review of Systems Constitutional: no fever, no chills and no fatigue Respiratory: no cough and no dyspnea Cardiovascular: as per Subjective / HPI Gastrointestinal: no heartburn Neurologic: no localized weakness and no numbness Physical Exam Physical Exam: General: Cooperative. NAD. Cardiovascular: Regular rhythms and rate. No murmurs, rubs, or gallops. Lungs: Lungs are clear to auscultation with no wheezing, rales, or crackles. GI: Bowel sound present. Tenderness mid-abdomen. Neuro - Mental: AOx3. Spelled "WORLD" backward. No difficulties with serial 7 and counted down to 58. - CN 3-12 intact. PERRLA. EOMI with no nystagmus. No eye deviation or gaze preference. - Motor: no pronator drift of out-stretched arms. Muscle bulk and tone are normal. Strength is 5/5 full bilaterally. - Sensory: Light touch intact in B/L upper and lower extremities. - Coordination: rapid alternating movements intact. No dysmetria on [id number] and [id number]. No abnormal or extraneous movement. Results & Data ([facility]) Vital Signs (Past 12 Hours) Vital Signs Temp Pulse Pulse Resp BP BP Pulse Ox 08/30/20 08:06 36.8 C 68 20 136/68 98 08/30/20 08:00 79 08/30/20 04:20 36.3 C L 68 18 154/80 H 98 08/30/20 02:29 54 L 08/30/20 01:45 36.5 C 80 16 150/94 H 95 08/30/20 01:31 73 19 08/30/20 01:30 72 18 122/64 08/30/20 01:01 78 24 08/30/20 01:00 77 19 109/65 08/30/20 00:31 79 13 92 08/30/20 00:30 79 20 122/61 94 08/30/20 00:01 90 14 93 08/30/20 00:00 90 14 128/80 08/29/20 23:55 88 14 08/29/20 23:53 87 15 154/92 H 08/29/20 23:30 101 H 17 150/85 H 96 08/29/20 23:21 102 H 15 167/96 H 97 08/29/20 23:20 105 H 16 198/95 H 99 08/29/20 23:12 100 H 08/29/20 23:00 104 H 16 148/78 H 99 08/29/20 22:55 105 H 16 152/85 H 99 08/29/20 22:53 108 H 19 162/86 H 98 08/29/20 22:50 110 H 16 161/93 H 98 08/29/20 22:45 113 H 19 210/111 H 98 08/29/20 22:40 118 H 27 H 201/141 H 99 08/29/20 22:35 93 H 20 184/110 H 08/29/20 22:31 79 15 98 08/29/20 22:30 90 11 L 175/139 H 96 08/29/20 22:25 90 14 189/116 H 08/29/20 22:20 92 H 19 167/135 H 97 08/29/20 22:15 81 20 187/105 H 97 08/29/20 22:10 99 H 28 H 167/110 H 100 08/29/20 22:05 88 19 160/130 H 100 08/29/20 22:03 80 24 98 08/29/20 22:00 144/93 H 08/29/20 21:50 97 H 22 173/123 H 08/29/20 21:40 81 21 192/105 H Resident Activity Tracking Resident Involvement: Resident Care Provided Care Provided: Adult Hospital Medicine
[2020-08-30 09:44] LABS: BUN Creatinine Ratio 6.7 (10-20); Calcium 9.4 mg/dl (8.5-10.1); Creatinine Clr Calc Pharmacy 122.5 ml/min; Est GFR (Non-African American) 126.8; Magnesium 2.3 mg/dl (1.8-2.4); Phosphorus 3.6 mg/dl (2.5-4.9); Potassium 3.3 mmol/L (3.5-5.1)
--- NOTE | 2020-08-30 09:48 | Neurology Consultation ---
Date of Consultation August 30, 2020 Assessment & Plan (1) Seizure: Convulsive episode occurring in the emergency department in the context of treatment of priapism. Patient has a history of seizures occurring in the context of polysubstance and alcohol abuse. He had a normal EEG completed this morning, has a normal CT of the head and intact neurological examination. He was given a 1 g loading dose of Keppra in the emergency department. However, I do not think he needs to continue with an anticonvulsant at this time. I will order an MRI of the brain with seizure protocol. Patient will need counseling regarding the importance of abstaining from drugs and alcohol. No further immediate neurological recommendations. History of Present Illness Reason for Consultation: seizure Requesting Physician: Radha Hernandez DO Attending Physician: Ajit Mcleod MD History of Present Illness The patient is a 25-year-old male who presented to the emergency department yesterday for treatment of priapism that had began 8 hours prior. He was treated by urology by withdrawing some blood from his penis after administering a local anesthetic. He was noted to have an unresponsive episode with associated rigidity of the arms and legs. It is unclear how long the unresponsiveness persisted although he was reportedly confused for about 16 minutes afterwards. He was agitated and became combative as well. He was treated with lorazepam and Keppra. He did have an unremarkable CT of the head. An EEG completed this morning was unremarkable as well. He was notably hypertensive while in the emergency department. He has a history of previous seizures occurring in the context of polysubstance and alcohol abuse. He does not take an anticonvulsant medication as an outpatient and does not follow with a neurologist. It is unclear when he last consumed a significant amount of alcohol. A urine drug screen was positive for opiates and marijuana. Ethyl alcohol level was less than 3.0. The patient does not have any recollection of the episode that occurred while in the emergency department. He does endorse a history of seizures occurring in the context of polysubstance and alcohol abuse as above. Allergies Allergy/AdvReac Type Severity Reaction Status Date / Time No Known Allergies Allergy Unverified 08/29/20 20:12 Home Medications Medication Instructions Recorded Confirmed Type No Known Home Medications 08/29/20 08/29/20 History Patient History Medical History Alcohol dependency Hypertension Surgical History No significant past surgical history Family History Other No significant family history Social History Smoking Status: Current every day smoker Cigarettes Per Day: 3; Hx Alcohol Use: Yes Hx Substance Use: Yes Last Used Substance: Days (ago) Preferred Language: Japanese Communication Ability: Effective Assistant Director Of Public Works Required: No Beliefs That Will Affect Care: None Current Living Situation: Homeless current occupational status: employed Feels Safe at Home: Yes Assistive Devices: None Review of Systems Constitutional: no fever and no chills Eyes: no blind spots and no diplopia Ear, Nose, Mouth, Throat: no hearing loss Respiratory: no cough and no dyspnea Cardiovascular: no chest pain and no palpitations Gastrointestinal: no nausea and no vomiting Genitourinary: + genital pain Musculoskeletal: no neck pain and no myalgia Integumentary: no rash and no lesions Neurologic: no localized weakness, no loss of sensation, no tremor(s), no headache(s) and no confusion Psychiatric: no depression and no anxiety Hematologic / Lymphatic: no easy bleeding and no easy bruising Exam (Neuro) Constitutional: well developed and well nourished; no acute distress Eyes: normal visual oliver by confrontation, PERRL, normal accommodation and EOM intact bilaterally; no fundoscopic abnormality, no nystagmus and no papilledema Cardiovascular: Vessels: normal carotid upstroke; no carotid bruit Neurologic: Oriented to:: Person, Place and Time Memory: Short Term Intact and Remote Intact Attention: Span Intact and Concentration Intact Language: Naming Objects and Repeating Phrases Speech Fluency: negative Dysarthria Speech Aphasia: negative Aphasia Fund of Knowledge: Current Events, Past History and Vocabulary Cranial Nerves: Normal II (Visual oliver full to confrontation, visual acuity normal), III, IV, (Pupils equal round reactive to light and accommodation, eye movements normal), V (Facial sensation intact), VII (There is no facial droop or weakness), VIII (Hearing intact), IX, X (Palate elevates to midline), XI (Shoulder shrug intact) and XII (Tongue protrudes to midline) Motor Strength: Normal Lower Extremities and Normal Upper Extremities; negative Pronator Drift Motor Tone: Normal Lower Extremities and Normal Upper Extremities Muscle Bulk/Involuntary Movements: No Involuntary Movements; negative Muscle Atrophy Sensation: Light Touch Intact, Pain/Temperature Intact, Vibration Intact and Proprioception Intact Coordination: Normal; negative Limited Balance, Dysdiadochokinesia, Finger-Nose Abnormal and Heel-Hsu Abnormal Deep Tendon Reflexes: Rt Triceps: 2+, Lt Triceps: 2+, Rt Biceps: 2+, Lt Biceps: 2+, Rt Brachioradialis: 2+, Lt Brachio radialis: 2+, Rt Patellar: 2+, Lt Patellar: 2+, Rt Ankle: 2+ and Lt Ankle: 2+ Special Tests: negative Babinski Present Gait: Normal Station and Gait Results & Data ([facility]) Vital Signs (Past 12 Hours) Vital Signs Temp Pulse Pulse Resp BP BP Pulse Ox 08/30/20 08:06 36.8 C 68 20 136/68 98 08/30/20 08:00 79 08/30/20 04:20 36.3 C L 68 18 154/80 H 98 08/30/20 02:29 54 L 08/30/20 01:45 36.5 C 80 16 150/94 H 95 08/30/20 01:31 73 19 08/30/20 01:30 72 18 122/64 08/30/20 01:01 78 24 08/30/20 01:00 77 19 109/65 08/30/20 00:31 79 13 92 08/30/20 00:30 79 20 122/61 94 08/30/20 00:01 90 14 93 08/30/20 00:00 90 14 128/80 08/29/20 23:55 88 14 08/29/20 23:53 87 15 154/92 H 08/29/20 23:30 101 H 17 150/85 H 96 08/29/20 23:21 102 H 15 167/96 H 97 08/29/20 23:20 105 H 16 198/95 H 99 08/29/20 23:12 100 H 08/29/20 23:00 104 H 16 148/78 H 99 08/29/20 22:55 105 H 16 152/85 H 99 08/29/20 22:53 108 H 19 162/86 H 98 08/29/20 22:50 110 H 16 161/93 H 98 08/29/20 22:45 113 H 19 210/111 H 98 08/29/20 22:40 118 H 27 H 201/141 H 99 08/29/20 22:35 93 H 20 184/110 H 08/29/20 22:31 79 15 98 08/29/20 22:30 90 11 L 175/139 H 96 08/29/20 22:25 90 14 189/116 H 08/29/20 22:20 92 H 19 167/135 H 97 08/29/20 22:15 81 20 187/105 H 97 08/29/20 22:10 99 H 28 H 167/110 H 100 08/29/20 22:05 88 19 160/130 H 100 08/29/20 22:03 80 24 98 08/29/20 22:00 144/93 H 08/29/20 21:50 97 H 22 173/123 H 08/29/20 21:40 81 21 192/105 H 08/29/20 21:38 78 17 166/108 H 08/29/20 21:35 81 19 179/143 H 08/29/20 21:34 68 17 08/29/20 21:33 67 23 178/119 H Laboratory Results WBC 9.44, hemoglobin 13.0, hematocrit 37.2, platelet count 277, sodium 136, potassium 3.5, BUN 6, creatinine 0.78, glucose 100, AST 16, ALT 18, urine toxicology as described in the HPI Diagnostic Findings CT of the head negative for hemorrhage or acute process. I reviewed the images as well as the radiologist's interpretation of this test. An EEG completed this morning reveals a normal alpha rhythm, no epileptiform abnormalities. Coding Level of Care Code 76506 Initial Inpt Care Lvl 3 Diagnoses Seizure R56.9
[2020-08-30] MEDS ORDERED: ACETAMINOPHEN 325 MG TAB PO PRN (11:30)
[2020-08-30] MEDS ORDERED: HYDROmorphone INJ 0.5 MG/0.5 ML SYR IV PRN (11:30)
--- NOTE | 2020-08-30 12:14 | Electrocardiogram Report ---
Test Reason : Blood Pressure : / mmHG Vent. Rate : 073 BPM Atrial Rate : 073 BPM P-R Int : 128 ms QRS Dur : 082 ms QT Int : 386 ms P-R-T Axes : 038 000 016 degrees QTc Int : 425 ms Sinus rhythm with Premature atrial complexes with Aberrant conduction Otherwise normal ECG When compared with ECG of 27-JAN-2015 01:38, Aberrant conduction is now Present ST no longer elevated in Anterior leads Confirmed by Andrea Curry ([id number]) on 08/30/2020 12:14:45 PM Referred By: REFERRED SELF Confirmed By:Addison Curry
[2020-08-30] MEDS: HYDROmorphone INJ 0.5 MG/0.5 ML SYR IV PRN ×2 (12:30→16:59)
[2020-08-30] MEDS ORDERED: POTASSIUM CHLORIDE PWD 20 MEQ PACK PO STA (13:44)
--- NOTE | 2020-08-30 15:41 | Ultrasound Report ---
US duplex renal artery CLINICAL HISTORY: Secondary hypertension. Assess for renal artery stenosis. COMPARISON STUDY: Abdomen and pelvis CT 07/28/2019. FINDINGS: The right kidney measures 10.6 cm and the left kidney measures 11.9 cm. No hydronephrosis. The peak systolic velocity within the right renal artery is 96 cm/s and the left renal artery is 89 c m/s. The bilateral renal veins are patent. Resistive indices within the bilateral renal arcuate arter ies are less than 0.75. There is a 10 cm thick-walled complex cystic lesion within the left mid abdom en. IMPRESSION: 1. No evidence for renal artery stenosis. 2. A 10 cm thick-walled complex cystic lesion within the left mid abdomen. This may represent a pancr eatic pseudocyst given the patient's prior history of acute pancreatitis. Follow-up ultrasound or CT can be performed to ensure resolution. ACT 112: Positive. There are findings on this exam that require communication between the performing entity and the patient following Patient Test Result Information Act ([place] Act 112) guidelines. Electronically signed by: Que Marcelino M.D. 08/30/2020 3:40 PM
--- NOTE | 2020-08-30 17:00 | Discharge Summary ---
Date of Service August 30, 2020 Admission HPI Per Admitting Provider Rigo Vargas is a 25yo male with history of HTN presenting to [facility] ER with priapism - initially complaining of lower abdominal pain and groin pain. Found to have priapism - appx 8 hour duration. He was evaluated by Urology whilst in the ER and was treated for his priapism with phenylephrine and pain control. Patient then proceeded to have a witnessed tonic-clonic seizure which was treated with Ativan and Keppra. patient was combative upon awakening and was briefly placed in restraints. Blood pressure was managed with several IV agents. Patient somnolent during my encounter. Wakes to verbal and tactile stimuli and answers some questions before falling back asleep. No additional complaints ER Course: Ativan 2mg, Keppra 1gm, Dilaudid 1mg, Hydralazine 10mg, Dilaudid 1mg x 3, Lidocaine, Phenylephrine, Labetalol, NSS, Zofran Admission Exam Per Admitting Provider General: patient somnolent, arousable, answers some questions and follows commands Skin: warm, dry, intact, no rashes or lesions HEENT: NC/AT, PERRL, EOMI, anicteric sclera, conjunctiva without injection, external ear normal to inspection and nontender, nares patent, moist mucus membranes, dentition intact, no oropharyngeal lesions, neck supple, trachea midline, no LAD, no thyromegaly, no JVD Heart: +S1/S2, regular, no m/r/g Lungs: equal air entry bilaterally, no rales/rhonchi/wheezes Abd: +BS, soft, NT/ND, no masses/organomegaly/ascites Ext: warm, 2+ pulses in UE/LE bilaterally, no clubbing/cyanosis or edema Neuro: nonfocal, patient AA&O x 4, speech intact, no facial droop, moving all extremities on command with equal strength 5/5 Principal Diagnosis General: patient somnolent, arousable, answers some questions and follows commands Skin: warm, dry, intact, no rashes or lesions HEENT: NC/AT, PERRL, EOMI, anicteric sclera, conjunctiva without injection, external ear normal to inspection and nontender, nares patent, moist mucus membranes, dentition intact, no oropharyngeal lesions, neck supple, trachea midline, no LAD, no thyromegaly, no JVD Heart: +S1/S2, regular, no m/r/g Lungs: equal air entry bilaterally, no rales/rhonchi/wheezes Abd: +BS, soft, NT/ND, no masses/organomegaly/ascites Ext: warm, 2+ pulses in UE/LE bilaterally, no clubbing/cyanosis or edema Neuro: nonfocal, patient AA&O x 4, speech intact, no facial droop, moving all extremities on command with equal strength 5/5 Discharge Exam Constitutional WD/WN, vitals as above Eyes PERRL, conjunctivae normal, anicteric sclerae ENMT external ear and nose normal, oropharynx normal Respiratory normal respiratory effort, lungs clear to auscultation Cardiovascular RRR, no murmur, no edema Gastrointestinal (Abdomen) normal bowel sounds, soft, nontender, no hepatosplenomegaly Musculoskeletal no cyanosis or clubbing, extremities motor strength 5/5 Skin no rashes, warm and dry Neurologic patellar DTR's 2+ bilat, sensation intact and PERRL, EOMI, accommodation nl, no face palsy, no dysarthria normal touch/pain/proprioception and CN's II-XI intact bilaterally Coordination: normal fjilid-[id number] test and normal Romberg test Psychiatric A+Ox3, euthymic affect Discharge Data Allergies Allergy/AdvReac Type Severity Reaction Status Date / Time No Known Allergies Allergy Unverified 08/29/20 20:12 Consultations 08/30/20 00:10 ED Decision to Admit Stat 08/30/20 02:27 Consult Neurology Routine Ordered Studies 08/29/20 22:51 CT head/brain wo con Urgent 08/30/20 09:48 MR brain seizure wo/w con Routine 08/30/20 15:00 duplex renal artery Urgent Hospital Course (1) Seizure: Pt is 25M with seizure, HTN, and priapism with high suspicion that symptoms are related to his long history of substance and ETOH use since he was a teen. Seizure - Episode in ED with tongue biting, AMS, and postictal state. Has had some episodes in past mostly associated with ecstasy use, but has not used it recently. Suspect due to polysubstance abuse (Ecstasy, alcohol, MJ) - Neuro consulted, CT head showing no intracranial finding, EEG and MRI brain w/wo contrast unremarkable - f/u with PCP within 1 week after discharge Multiple drug use disorder - Patient uses Ecstasy, Marijuana, Alcohol regularly, UDS positive for THS but negative for alcohol/ecstasy on admission - counseled on cessation of multiple drugs - f/u with PCP as above Hypertension - Chronic and has had since 13yo. He was taking HTN meds (lisinopril, HCTZ, and amlodipine) in past, but hasn't taken any for 1.5yrs. Suspect that HTN is 2/2 multiple substance abuse. - Initial BP in ED 222/134 and currently 136/68 after PRN Labetalol/Hydralazine - renal US negative for renal artery stenosis - Started on Chlorthalidone 25mg po daily but BP again increased to >200/100, suspect this is largely due to pain (see below) - counseled on the risks of being discharged with persist BPs of 200/100 - p atient understands the risks but would like to be discharged today - counseled on measuring BP on a regular basis after discharge - will continue Chlorthalidone 25 mg PO daily after discharge - patient will f/u with PCP within 1 week as mentioned above Priapism - Resolved, but still having soreness. - prescribed Percocet 5/325 Q8H PRN x3 days after discharge Pancreatic Pseudocyst - incidental finding on renal US, likely due to recent bout of pancreatitis - recommend f/u US vs CT as outpatient to ensure resolution (2) Malignant hypertension: (3) Priapism: (4) Hypertension: (5) Alcohol dependency: (6) Polysubstance overdose: Total Time Total Time Spent Total Time Spent (In Minutes): 45 minutes Total Time Includes: Examination of the Patient, Discharge Planning and Medication Reconciliation Discharge Plan Discharge Items Patient Disposition: Home - Self-Care Reason For Visit: PRIAPISM, SEIZURE, HPERTENSION Discharge Diagnosis: Priapism Hypertension Seizure Activity: Per Instructions section Non-emergency contact: Primary Care Provider Call non-emergency contact if: you have any medication questions, your symptoms worsen and your pain is not controlled Follow-up/Referrals: Lawrence Mcarthur MD [Resident] - 09/05/20 Diet: Regular Addtl Attending Provider Instructions: You were admitted to [facility] on 08/29/2020 for a prolonged erection called priapism, very high blood pressure, and a seizure. In regards to your priapism, our Urologist injected a medicine called Phenylephrine into your penis which helped to resolve the erection. You had residual pain in your groin after this procedure. This pain is likely due to a strained ligament in your groin which likely occurred due to the extreme pain you were in during the priapism. We sent a pain medication called Percocet to your pharmacy - you can take this up to three times per day as needed for pain. In regards to your high blood pressure, you were given several IV medications to decrease your blood pressure, which was initially over 200/100. You were started on an oral medication called Chlorthalidone, and we sent this medication to your pharmacy. You should take this medication once per day, in the morning. You should also make sure to measure your blood pressure daily. If your blood pressure goes higher than 180/120 and stays there, we recommend that you come back to the ER. You will be set up for a follow-up appointment with Dr. Mcarthur on Thursday, 09/05, at the [facility]. - address: [address] [place] [address] [address] - number: [phone] In regards to your seizures, you were given several IV medications which helped to abort the seizure. You had two scans of your brain as well as a brain monitoring test called an EEG that were normal, thus making a seizure disorder very unlikely. It is very likely that your seizures are connected to the drugs you have used, such as Ecstasy and Alcohol. We recommend that you try to maintain abstinence from Ecstasy and to limit alcohol use as much as possible. Lastly, you had a kidney ultrasound that showed that you do not have kidney disease as the cause of your high blood pressure. However it did show a cystic mass that is likely called a pseudocyst on your pancreas. This is a common finding in patients who had pancreatitis, and we will need to get another image of your abdomen at a later time, to make sure that it is getting smaller. We hope you continue to feel well. It was a pleasure to help provide your care while you were hospitalized. Pending Studies at Discharge: Yes Studies:: MRI Brain Seizure w/wo contrast Synthetic Opioids UDS Stand-Alone Forms: My [employer], Smoking Cessation Medications and DC Order Prescriptions: New chlorthalidone 25 mg tablet 25 mg PO DAILY Qty: 30 RF: 2 oxycodone-acetaminophen [Percocet] 5-325 mg tablet 1 tab PO Q12 5 Days Qty: 10 RF: 0 No Action No Known Home Medications RF: 0 Discharge Orders: Discharge Order (Routine); Ordered 08/30/20 Ordered By: Lawrence Mcarthur Admission Data Admit Date/Time: 08/30/20 01:06 Attending Provider: Ajit Mcleod Admit Provider: Radha Hernandez Primary Care Provider: PCP,NO Other Providers: Radha Hernandez ; Perico Ham Supervising Physician Co-Signing Physician Notes Attending attestation Pt seen and examined in concert with Dr. Mcarthur. In agreement with the documented findings as noted in the resident documentation with any exceptions or additions as noted here. Complains of ongoing pain at the base of the penile shaft which is controlled on current pain medication but severe when unmedicated. Urinating without difficulty. No further neurologic symptoms reported. On examination, S1/S2 nl RRR no MCG. CTAB. Abd NT/ND BS+ve. CNII-XII grossly intact. Seizure - single episode while here, previous history of same associated with polysubstance abuse without recent use reported. Counseling re: abstaining from substances impacting seziure threshold and encourage to establish with PCP for further management. HTN, uncontrolled, chronic - persistent elevated BP, worse with pain. Started chlorthalidone. Counseling re: impact of untreated HTN and potential comorbidities grant with priapism Priapism - ongoing pain. short course of percocet provided for pain management, strongly rec'd f/u with PCP for further mgmt, education re: causes and response to sx Pancreatic pesudocyst - finding on renal US - follow as outpatient w/ dedicated imaging (US/CT) Else see resident documentation as noted. Total attending time spent on this patient's case on the day of discharge: 45 minutes. Resident Activity Tracking Resident Involvement: Resident Care Provided Care Provided: Adult [facility]
[2020-08-30] MEDS ORDERED: GADOBUTROL 65ML VIAL IV ONE (21:03)
--- NOTE | 2020-08-30 21:21 | Magnetic Resonance Report ---
MRI OF THE BRAIN COMBO CLINICAL HISTORY: Seizure. COMPARISON STUDY: CT of the brain dated 08/29/2020. TECHNIQUE: MRI of the brain was performed utilizing various T1 and T2-weighted sequences in the axial , sagittal, and coronal planes. Contrast-enhanced sequences were acquired following the administratio n of 5.5 cc of Gadavist. Examination is performed using the seizure protocol. FINDINGS: Brain parenchyma: The brain parenchyma is normal in appearance. There is no hemorrhage or mass effect . There is no restricted diffusion to suggest acute ischemia. No enhancing mass lesion is identified on the postcontrast images. Ga-white matter differentiation is preserved. No extra-axial fluid ramon ection is seen. The cerebellar tonsils are normal in configuration. The hippocampi are normal and sym metric. Ventricles, sulci, and cisterns: Normal in configuration. Cavum septum pellucidum is incidentally not ed. Pituitary and sella: Unremarkable. Intracranial vasculature: Normal flow voids are maintained at the skull base. Orbits: The bony orbits are grossly intact. Orbital contents are normal in appearance. Sinuses and mastoids: Clear. Calvarium: Unremarkable. Cervical cord: Partially visualized cervical spinal cord is normal in morphology and signal intensity . IMPRESSION: No intracranial abnormality is identified. ACT 112: Negative or not required by law. Electronically signed by: Reg Novoa M.D. 08/30/2020 9:20 PM
[2020-09-02 00:26] LABS: Codeine Urine NEGATIVE ng/mL (<50); Hydrocodone Urine NEGATIVE ng/mL (<50); Hydromor Urine 885 ng/mL (<50); Marijuana Quant, GCMS Urine 113 ng/mL (<5); Morphine Urine NEGATIVE ng/mL (<50); Norhydrocodone Conf Ur NEGATIVE ng/mL (<50); Noroxycodone Urine NEGATIVE ng/mL (<50); Oxycodone Urine NEGATIVE ng/mL (<50); Oxymorph Urine NEGATIVE ng/mL (<50)
== END 2020-08-30 21:14 | disposition home or self-care (01) | DRG 101 ==
LOC: ED 18:47 → 2S 08-30 01:06 → INTOOBSV 08-30 01:06 → SUATTDRO 08-30 01:06 → 2S 08-30 01:35